=== PATIENT | female | born 1985 | race African-American/Black ===

== ENCOUNTER 2021-12-21 01:22 | Emergency (ER) | payer OTHER ==
[2021-12-21 02:20] VITALS: BMI 30.2
[2021-12-21] MEDS ORDERED: ACETAMINOPHEN 1000 MG/100 ML BAG IVPB ONE (02:27)
[2021-12-21 03:11] LABS: BASO % 0.7 % (0-2.0); EOS % 2.1 % (0-4.5); HEMOGLOBIN 13.3 GM/dL (10.7-15.3); LYMPH % 31.7 % (8-40); MCH 28.8 pg (25.7-33.7); MCHC 34.1 g/dl (32.0-36.0); MEAN CELL VOLUME 84.5 fl (80-96); MEAN PLT VOLUME 7.4 fl (7.5-11.1); MONO % 7.9 % (3.8-10.2); NEUT % 57.6 % (42.8-82.8); PLATELET COUNT 282 10^3/uL (134-434); RBC 4.62 M/mm3 (3.60-5.2); RDW 14.4 % (11.6-15.6); WHITE BLOOD COUNT 7.9 K/mm3 (4.0-10.0)
[2021-12-21] MEDS ORDERED: ACETAMINOPHEN 500 MG TABLET (FP) PO ONE (03:14)
[2021-12-21] MEDS ORDERED: ACETAMINOPHEN 325 MG TABLET (FP) ONE (03:15)
[2021-12-21 04:34] LABS: CALCIUM 8.8 mg/dL (8.5-10.1)
[2021-12-21 04:35] LABS: BLOOD UREA NITROGEN 11.3 mg/dL (7-18)
[2021-12-21 04:38] LABS: CREATININE 0.7 mg/dL (0.55-1.3)
[2021-12-21 04:40] LABS: BILIRUBIN,TOTAL 0.2 mg/dL (0.2-1); TOT PROT 7.4 g/dl (6.4-8.2)
[2021-12-21 06:36] VITALS: BP 124/79; PULSE 71; TEMP 97.8
== END 2021-12-21 06:38 | disposition home or self-care (01) ==
LOC: JER 01:22
PROC: 3E033NZ Introduction of Analgesics, Hypnotics, Sedatives into Peripheral Vein, Percutaneous Approach (ICD-10-PCS; principal; 2021-12-21)
DX: R07.9 Chest pain, unspecified (principal)
CPT/HCPCS: 36415; 71046-TC-FY; 80053; 84484; 84703; 85025; 93005; 93010; 99284-25